=== PATIENT | female | born 1970 | race Caucasian/White ===

== ENCOUNTER → 2017-12-19 | Day surgery (SDC) | payer OTHER ==
[2017-12-12 14:36] VITALS: Ht 170.2 cm; Wt 66.8 kg
[~2017-12-19] VITALS: Ht 170.2 cm; Wt 66.8 kg
[~2017-12-19] MED LIST: AMIT10TA6 PO; AMOX875T PO; FENTANYL CITRATE INJ 50 MCG/1 ML 2 ML VIAL ONE; LIDOCAINE HCL 2% 2 ML VIAL (20MG/ML) ONE; MIDAZOLAM HCL 1 MG/ML 2ML VIAL ONE; PRLSR20 PO; PROPOFOL IV EMULSION 10 MG/ML 20 ML VIAL IV ONE; SODIUM CHLORIDE 0.9% 500ML 500 ML IV ONE
--- NOTE | 2017-12-19 10:20 | Endo History and Physical ---
History & Physical Date of Service: Dec 19, 2017. Chief Complaint: Reflux, GERD(Arizmendi placement Referring Physician: Sukhdev History of Present Illness GERD and laryngitis, here for EGD with Arizmendi PH test Past Surgical History Hx Cardiac Surgery: No Hx Internal Defibrillator: No Hx Pacemaker: No Hx Abdominal Surgery: Yes (HERNIA REPAIR) Hx of Implantable Prosthesis: No Hx Post-Op Nausea and Vomiting: No Hx Cancer Surgery: No Hx Thoracic Surgery: No Hx Orthopedic: No Hx Urinary Tract Surgery: No Family History Colon CA, Polyp Social History Smoking Status: Never Smoker Hx Substance Use: No Hx Alcohol Use: No Allergies Coded Allergies: Erythromycin (Verified Allergy, Unknown, BECOMES DEAF (HAPPENED A CHILD ), 12/12/17) Current Medications Reported Home Medications Medications Dose Route/Sig Max Daily Dose Days Date Category Dose Instructions Augmentin 875-125 mg (Amoxicillin & Pot Clavulanate) 1 Tab Tab 1 Tab PO BID 12/12/17 Reported WILL COMPLETE 12-14-17 Elavil (Amitriptyline Hcl) 10 Mg Tab 2 Tab PO HS 12/12/17 Reported Prilosec (Omeprazole) 20 Mg Capcr 20 Mg PO QAM 12/12/17 Reported Vital Signs Weight (Kilograms): 66.82 Height (Feet): 5 Height (Inches): 7 Date Time Temp Pulse Resp B/P (MAP) Pulse Ox O2 Delivery O2 Flow Rate FiO2 12/19/17 09:56 37.1 69 16 131/73 (92) 100 Room Air Physical Exam General Appearance: no apparent distress Respiratory/Chest: Auscultation: breath sounds normal Cardiovascular: Heart Auscultation: RRR Abdomen: Inspection & Palpation: soft Assessment and Plan Patient agreed for EGD with Arizmendi PH and consented.
--- NOTE | 2017-12-19 10:53 | Discharge Instructions ---
Endoscopy Patient Instructions Date / Procedure(s) Performed Dec 19, 2017. EGD Allergy Information Coded Allergies: Erythromycin (Verified Allergy, Unknown, BECOMES DEAF (HAPPENED A CHILD ), 12/12/17) Discharge Date / Findings Dec 19, 2017. Normal EGD. Arizmendi PH placed. Medication Instructions Stopped Medication(s): Stopped prilosec for procedure Provider Instructions Activity Restrictions - No exercising or heavy lifting for 24 hours. - Do not drink alcohol the day of the procedure. - Do not drive a car or operate machinery until the day after the procedure. - Do not make any important decisions or sign important papers in 24 hours after the procedure. Following Day: - Return to full activity which may include returning to work/school. Diet Start your diet with liquids and light foods (jello, soup, juice, toast). Then eat your usual diet if not nauseated. Treatment For Common After Affects For mild abdominal pain, bloating, or excessive gas: - Rest - Eat lightly - Lie on right side Follow-Up Information Follow-up with Sukhdev as scheduled Anesthesia Information What You Should Know You have had a procedure that required some medicine to reduce anxiety and discomfort. This treatment is called moderate sedation. After receiving the treatment, you may be sleepy, but you will be able to breathe on your own. The effects of the treatment may last for several hours. Follow these instructions along with Activity/Diet recommendations noted above: * Do NOT do anything where dizziness or clumsiness would be dangerous. * Rest quietly at home today, then you can be up and about tomorrow. * Have a responsible person stay with you the rest of today. * You may have had an I.V. today. If so, you may take the dressing off later today. Recommendations Call your doctor if: * Trouble breathing * Continuous vomiting for more than 24 hours * Temperature above 101 degrees * Severe abdominal pain or bloating * Pain not relieved by pain medicine ordered * There is increased drainage or redness from any incision * A large amount of rectal bleeding greater than 2-3 tablespoons. (If you had a polyp/s removed or have hemorrhoids, a small amount of blood - from the rectum is to be expected.) * You have any unanswered questions or concerns. IN THE EVENT OF A SERIOUS EMERGENCY, GO TO THE NEAREST EMERGENCY ROOM Your discharge instructions were prepared by provider Mark Raman. Patient Instructions Signature Page Francisca Pecjuliann Patient (or Guardian) Signature/Date: I have read and understand the instructions given to me by my caregivers. Caregiver/RN/Doctor Signature/Date: The above-named patient and/or guardian has received patient instructions on this date. + Original Patient Signature Page (only) stays with chart. Please make copy for patient.
--- NOTE | 2017-12-19 10:53 | Anesthesiology Progress Note ---
Anesthesia Post Op Note Date & Time Dec 19, 2017 at 10:53 Vital Signs Pain Intensity: 0 Vital Signs Past 12 Hours Date Time Temp Pulse Resp B/P (MAP) Pulse Ox O2 Delivery O2 Flow Rate FiO2 12/19/17 09:56 37.1 69 16 131/73 (92) 100 Room Air Notes Mental Status: alert / awake / arousable, participated in evaluation Pt Amnestic to Procedure: Yes Nausea / Vomiting: adequately controlled Pain: adequately controlled Airway Patency, RR, SpO2: stable & adequate BP & HR: stable & adequate Hydration State: stable & adequate Anesthetic Complications: no major complications apparent
--- NOTE | 2017-12-19 10:58 | GI REPORT ---
Procedure Date: 12/19/2017 10:10 AM Procedure: Upper GI endoscopy Indications: Esophageal reflux symptoms that persist despite appropriate therapy, Laryngitis Medicines: Monitored Anesthesia Care Complications: No immediate complications. Estimated Blood Loss: Estimated blood loss: none. Procedure: Pre-Anesthesia Assessment: - Prior to the procedure, a History and Physical was performed, and patient medications and allergies were reviewed. The patient is competent. The risks and benefits of the procedure and the sedation options and risks were discussed with the patient. All questions were answered and informed consent was obtained. Patient identification and proposed procedure were verified by the physician and the nurse in the procedure room. Mental Status Examination: alert and oriented. Airway Examination: normal oropharyngeal airway and neck mobility. Respiratory Examination: clear to auscultation. CV Examination: normal. ASA Grade Assessment: II - A patient with mild systemic disease. After reviewing the risks and benefits, the patient was deemed in satisfactory condition to undergo the procedure. The anesthesia plan was to use monitored anesthesia care (MAC). Immediately prior to administration of medications, the patient was re-assessed for adequacy to receive sedatives. The heart rate, respiratory rate, oxygen saturations, blood pressure, adequacy of pulmonary ventilation, and response to care were monitored throughout the procedure. The physical status of the patient was re-assessed after the procedure. After obtaining informed consent, the endoscope was passed under direct vision. Throughout the procedure, the patient's blood pressure, pulse, and oxygen saturations were monitored continuously. The Scope was introduced through the mouth, and advanced to the second part of duodenum. The upper GI endoscopy was accomplished without difficulty. The patient tolerated the procedure well. Findings: The examined esophagus was normal. The JOSUE capsule with delivery system was introduced through the mouth and advanced into the esophagus, such that the JOSUE pH capsule was positioned 32 cm from the incisors, which was 6 cm proximal to the GE junction. Suction was applied to the well of the JOSUE pH capsule to suck in the adjacent mucosa of the esophagus using the external vacuum pump set at a minimum vacuum pressure of 580 mmHg for 35 seconds. The JOSUE pH capsule was then deployed by depressing the plunger on top of the handle to advance the locking pin into the mucosa, thereby attaching the capsule to the esophagus. The plunger was then rotated a quarter turn clockwise to release the capsule from the delivery system. The delivery system was then withdrawn. Endoscopy was utilized for probe placement and diagnostic evaluation. The entire examined stomach was normal. The duodenal bulb and second portion of the duodenum were normal. Impression: - Normal esophagus. - Normal stomach. - Normal duodenal bulb and second portion of the duodenum. - The JOSUE pH capsule was positioned 32 cm from the incisors, which was 6 cm proximal to the GE junction. - No specimens collected. Recommendation: - Discharge patient to home. - Return to GI clinic as previously scheduled. Mark Raman MD 12/19/2017 10:57:58 AM This report has been signed electronically. Note Initiated On: 12/19/2017 10:10 AM I attest to the content of the Intraoperative Record and orders documented therein, exceptions below
[2017-12-19 11:39] VITALS: BP 108/64; PULSE 63; O2SAT 98
== END | disposition home or self-care (01) ==
LOC: C.GI 09:17
PROVIDERS: ATTEND Student in an Organized Health Care Education/Training Program
DX: K21.9 Gastro-esophageal reflux disease without esophagitis (principal); Z88.1 Allergy status to other antibiotic agents; Z80.0 Family history of malignant neoplasm of digestive organs

== ENCOUNTER 2018-07-04 14:59 | Emergency (ER) | payer OTHER ==
[~2018-07-04] VITALS: Ht 170.2 cm; Wt 65.9 kg
[~2018-07-04 14:59] MED LIST changes: -FENTANYL CITRATE INJ 50 MCG/1 ML 2 ML VIAL ONE; -LIDOCAINE HCL 2% 2 ML VIAL (20MG/ML) ONE; -MIDAZOLAM HCL 1 MG/ML 2ML VIAL ONE; -PROPOFOL IV EMULSION 10 MG/ML 20 ML VIAL IV ONE; -SODIUM CHLORIDE 0.9% 500ML 500 ML IV ONE
[2018-07-04 15:08] VITALS: TEMP 36.9; Ht 170.2 cm; Wt 65.9 kg
[2018-07-04 15:26] VITALS: O2SAT 96
[2018-07-04] MEDS ORDERED: KETOROLAC TROMETHAMINE 30 MG/ML VIAL IV STA (15:35)
[2018-07-04] MEDS ORDERED: SODIUM CHLORIDE 0.9% 1000ML 1,000 ML IV STA ×2 (15:35)
[2018-07-04] MEDS ORDERED: ASPIRIN 324 MG CHEW PO STA (15:35)
[2018-07-04 15:45] LABS: BASO % 0.9 %; BASO ABS # 0.07 K/uL (0-0.2); EOS % 1.5 %; EOS ABS # 0.12 K/uL (0-0.5); HEMATOCRIT 37.9 % (37-47); HEMOGLOBIN 12.9 g/dL (12.0-16.0); IG# 0.03 K/uL (0.00-0.02); LYMPH % 31.7 %; LYMPH ABS # 2.46 K/uL (1.2-3.4); MEAN CELL VOLUME 94.5 fL (80-100); MEAN CORPUSCULAR HEMOGLOBIN 32.2 pg (25-34); MEAN PLATELET VOLUME 11.9 fL (7.4-10.4); MONO ABS # 0.62 K/uL (0.11-0.59); NEUT % 57.5 %; NEUT ABS # 4.47 K/uL (1.4-6.5); PLATELET COUNT 221 K/uL (130-400); RED CELL DISTRIBUTION WIDTH SD 45.1 fL (36.4-46.3); WHITE BLOOD COUNT 7.77 K/uL (4.8-10.8)
[2018-07-04 16:07] LABS: ALBUMIN 3.9 gm/dl (3.4-5.0); CALCIUM 8.3 mg/dl (8.5-10.1); CREATININE 0.8 mg/dl (0.60-1.20); POTASSIUM 3.6 mmol/L (3.5-5.1); TOTAL PROTEIN 7.3 gm/dl (6.4-8.2)
[2018-07-04 16:09] LABS: CKMB 1.2 ng/ml (0.5-3.6)
--- NOTE | 2018-07-04 16:20 | DIAGNOSTIC IMAGING REPORT ---
HEAD WITHOUT CONTRAST (CT) CLINICAL HISTORY: 47 years-old Female presenting with EVAL HEADACHE. TECHNIQUE: Multidetector CT imaging of the head was performed without the use of intravenous contrast. IV contrast: None. A dose lowering technique was used consistent with the principles of ALARA (as low as reasonably achievable). COMPARISON: 11/03/2014. CT DOSE (mGy.cm): The estimated cumulative dose is 537.48 mGy.cm. FINDINGS: Test Engine Mechanic topogram: Unremarkable. Ventricles and sulci normal in size. Brain parenchyma normal in appearance with preserved cleveland-white differentiation. No mass effect or midline shift. No hemorrhage or acute territorial infarct. No extra-axial fluid collection. Paranasal sinuses and mastoid air cells clear. Calvarium intact. IMPRESSION: 1. No acute intracranial abnormality. Electronically signed by: Joon Sheth M.D. 07/04/2018 4:19 PM Dictated Date/Time: 07/04/2018 4:16 PM
--- NOTE | 2018-07-04 16:45 | DIAGNOSTIC IMAGING REPORT ---
CHEST 2 VIEWS ROUTINE CLINICAL HISTORY: 47 years-old Female presenting with LEFT CHEST PAIN X 3 WEEKS. TECHNIQUE: PA and lateral views of the chest were obtained. COMPARISON: 11/03/2014. FINDINGS: Cardiomediastinal silhouette normal. Lungs and pleural spaces clear. Osseous structures normal. Upper abdomen normal. IMPRESSION: 1. No acute cardiopulmonary disease. Electronically signed by: Joon Sheth M.D. 07/04/2018 4:43 PM Dictated Date/Time: 07/04/2018 4:42 PM
--- NOTE | 2018-07-04 16:46 | DIAGNOSTIC IMAGING REPORT ---
C-SPINE ROUTINE 4 OR 5 VIEWS CLINICAL HISTORY: 47 years-old Female presenting with LEFT NECK/ARM PAIN ON AND OFF X 3 WEEKS. TECHNIQUE: Frontal, bilateral oblique, lateral, and open-mouth odontoid views of the cervical spine were obtained. COMPARISON: CT from 2013. FINDINGS: Straightening of normal cervical lordosis likely positional and unchanged from prior. Vertebral bodies maintain normal height and alignment. Intervertebral disc heights preserved. The C7 vertebral body is fully visualized. No osseous neural foraminal narrowing. No fracture or subluxation. Normal predental interval. Lateral masses of C1 articulate normally with C2. No significant uncovertebral hypertrophy. No prevertebral soft tissue swelling. IMPRESSION: No radiographic evidence of acute osseous injury or advanced degenerative change of the cervical spine. Electronically signed by: Joon Sheth M.D. 07/04/2018 4:45 PM Dictated Date/Time: 07/04/2018 4:43 PM
[2018-07-04] MEDS ORDERED: ONDANSETRON INJ 2 MG/ML 2 ML VIAL IV STA (17:09)
--- NOTE | 2018-07-04 18:28 | DIAGNOSTIC IMAGING REPORT ---
L VENOUS DOPP LOWER EXT UNILAT CLINICAL HISTORY: 47 years-old Female presenting with LEFT LEG PAIN, EVAL DVT. TECHNIQUE: Real-time grayscale and color and spectral Doppler ultrasound imaging of the veins of the left lower extremity was performed. Compression and augmentation were also utilized. COMPARISON: None. FINDINGS: LEFT: Common femoral vein: Patent. Greater saphenous vein: Patent. Deep femoral vein: Patent. Femoral vein: Patent. Popliteal vein: Patent. Calf veins: Patent. Other: None. IMPRESSION: No evidence of deep venous thrombosis. Electronically signed by: Joon Sheth M.D. 07/04/2018 6:26 PM Dictated Date/Time: 07/04/2018 6:26 PM
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
[2018-07-04 20:32] VITALS: BP 110/77; PULSE 70; O2SAT 97
== END 2018-07-04 20:34 | disposition home or self-care (01) ==
LOC: C.EDB 15:01 → C.EDA 20:34
DX: R07.9 Chest pain, unspecified (principal); R51 Headache; M79.605 Pain in left leg; K21.9 Gastro-esophageal reflux disease without esophagitis